=== PATIENT | male | born 1970 | race African-American/Black ===

== ENCOUNTER 2017-09-17 19:17 | Emergency (ER) | payer SELFPAY | END 2017-09-17 20:30 | disposition left against medical advice (07) | LOC: EMS 19:25 | DX: Z53.21 Procedure and treatment not carried out due to patient leaving prior to being seen by health care provider (principal) ==

== ENCOUNTER 2022-04-17 17:24 | Inpatient (IN) | payer MEDICAID ==
[~2022-04-17] VITALS: Ht 180.3 cm; Wt 102.7 kg
[2022-04-17] MEDS ORDERED: NALOXONE HCL 1 MG/ML 2 ML SYRINGE IVP ONE ×2 (17:30→18:30)
[2022-04-17] MEDS ORDERED: SODIUM CHLORIDE 0.9% 1,000 ML IV ONE (17:45)
[2022-04-17 17:56] LABS: BASOPHILS % (AUTO) 0.4 % (0.0-2.0); EOSINOPHILS % (AUTO) 2.3 % (1.0-6.0); HEMATOCRIT 42.9 % (41-53); HEMOGLOBIN 14.3 g/dL (13.5-17.5); LYMPHOCYTES # (AUTO) 2.3 K/uL (1.0-4.8); MEAN CORPUSCULAR HEMOGLOBIN 28.4 pg (26.0-34.0); MEAN CORPUSCULAR HGB CONC 33.3 G/dL (31.0-37.0); MEAN CORPUSCULAR VOLUME 86 fL (80-100); MONOCYTES # (AUTO) 0.6 K/uL (0.1-1.0); NEUTROPHILS # (AUTO) 2.9 K/uL (1.8-7.7); NEUTROPHILS % (AUTO) 48.3 % (40.0-70.0); PLATELET COUNT (AUTO) 204 K/uL (150-450); RED BLOOD CELL COUNT(AUTO) 5.02 MIL/uL (4.50-5.90); RED CELL DISTRIBUTION WIDTH 13.7 % (11.5-14.5)
[2022-04-17 17:57] LABS: COVID AG,FIA SOURCE NASOPHARYNGEAL
[2022-04-17 18:14] LABS: PROTHROMBIN TIME 10.3 SEC (9.4-11.6)
[2022-04-17 18:25] LABS: LACTIC ACID 2.1 mmol/L (0.4-2.0)
[2022-04-17 18:26] LABS: B-TYPE NATRIURETIC PEPTIDE < 5 pg/mL (0-100)
[2022-04-17 18:34] LABS: ALANINE AMINOTRANSFERASE 23 U/L (12-78); ALBUMIN 4.2 g/dL (3.4-5.0); ALKALINE PHOSPHATASE 94 U/L (46-116); ANION GAP 14 mmol/L (8-16); ASPARTATE AMINOTRANSFERASE 18 U/L (15-37); BILIRUBIN,TOTAL 0.3 mg/dL (0.1-1.0); CALCIUM, TOTAL 8.8 mg/dL (8.8-10.5); CARBON DIOXIDE 27 mmol/L (22-29); CHLORIDE 106 mmol/L (98-107); CREATINE KINASE, TOTAL ONLY 318 U/L (39-308); CREATININE 1.07 mg/dL (0.60-1.30); GLOMERULAR FILTR. RATE CALC > 60 mL/min (>60); GLUCOSE,RANDOM 117 mg/dL (70-110); SODIUM SERUM 147 mmol/L (136-145); TOTAL PROTEIN, SERUM 7.7 g/dL (6.4-8.2); UREA NITROGEN, BLOOD 11 mg/dL (7-18)
[2022-04-17 18:35] LABS: POTASSIUM 2.9 mmol/L (3.5-5.1)
[2022-04-17 18:56] LABS: ABG BASE EXCESS -2.6 mmol/L (-2.0-3.0); ABG CARBOXYHEMOGLOBIN 2.4 % (0.0-1.5); ABG HCO3 22.1 mmol/L (22.0-26.0); ABG METHEMOGLOBIN 0.3 % (0.0-1.5); ABG OXYGEN CONTENT 17.7 mL/dL (15.0-23.0); ABG OXYGEN SATURATION 91.3 % (95.0-98.0); ABG OXYHEMOGLOBIN 88.8 % (94.0-100.0); ABG PCO2 43 mmHg (35-45); ABG PH 7.345 (7.35-7.450); ABG TOTAL HEMOGLOBIN 14.2 G/dL (12.0-18.0); PO2, ARTERIAL BG 61.9 mmHg (84.0-92.0); SOURCE, BLOOD GAS ARTERIAL; TEMPERATURE, FAHRENHEIT, BG 98.6 FAHREN (96.0-98.6)
[2022-04-17 18:57] LABS: O2 DEVICE,BLOOD GAS CANNULA (ROOM AIR); SITE, BLOOD GAS LFT RADIAL
[2022-04-17 18:57] LABS: APPEARANCE,URINE CLEAR (CLEAR); BILIRUBIN,URINE NEGATIVE (NEGATIVE); GLUCOSE, URINE (UA) NEGATIVE (NEGATIVE); KETONES,URINE NEGATIVE (NEGATIVE); LEUKOCYTE ESTERASE ,URINE NEGATIVE (NEGATIVE); NITRATE,URINE NEGATIVE (NEGATIVE); OCCULT BLOOD,URINE MODERATE (NEGATIVE); PROTEIN,URINE 30-70 mg/dL (NEGATIVE); SPECIFIC GRAVITIY, URINE 1.019 (1.003-1.030); UROBILINOGEN,URINE <=1.0 mg/dL (<=1.0)
[2022-04-17 19:02] LABS: PHOSPHORUS 3.8 mg/dL (2.5-4.9)
[2022-04-17 19:06] LABS: AMPHET/METH SCREEN,URINE POSITIVE (NEGATIVE); BACTERIA,URINE None Seen /HPF (None Seen); BARBITURATE SCREEN, URINE NEGATIVE (NEGATIVE); BENZODIAZEPINES SCREEN,URINE NEGATIVE (NEGATIVE); CANNABINOID SCREEN,URINE NEGATIVE (NEGATIVE); COCAINE SCREEN,URINE NEGATIVE (NEGATIVE); METHADONE SCREEN, URINE NEGATIVE (NEGATIVE); OPIATE SCREEN,URINE NEGATIVE (NEGATIVE); RBC,URINE 0-2 /HPF (0-2); WBC,URINE None Seen /HPF (0-5)
[2022-04-17] MEDS ORDERED: ONDANSETRON HCL 4 MG/2 ML VIAL IVP PRN (19:15)
[2022-04-17] MEDS ORDERED: POTASSIUM CHLORIDE 20 MEQ ER TABLET PO PRN (19:30)
[2022-04-17] MEDS ORDERED: PIPERACILLIN/TAZO 3.375 GM/D5W 50 ML IV ONE (19:30)
[2022-04-17] MEDS ORDERED: POTASSIUM CHL 10 MEQ/WATER 50 ML IV PRN (19:30)
[2022-04-17] MEDS ORDERED: NALOXONE HCL 0.4 MG/ML VIAL IVP PRN (19:30)
[2022-04-17] MEDS: POTASSIUM CHL 10 MEQ/WATER 50 ML IV SCH ×2 (19:40→22:24)
[2022-04-17 19:49] LABS: PHENCYCLIDINE SCREEN,URINE NEGATIVE (NEGATIVE)
[2022-04-17 23:18] VITALS: BP 125/89
[2022-04-18] MEDS: PIPERACILLIN/TAZO 3.375 GM/D5W 50 ML IV SCH ×4 (02:09→20:05)
[2022-04-18 06:49] VITALS: BP 141/87
[2022-04-18 07:16] VITALS: BP 138/82
[2022-04-18] MEDS ORDERED: [UNRECOGNIZED DRUG - REMARK] AS (08:36)
[2022-04-18 11:28] VITALS: BP 148/89
[2022-04-18 14:51] VITALS: BP 142/78
[2022-04-18] MEDS ORDERED: OMEP20 PO (16:24)
[2022-04-18] MEDS ORDERED: OLAN10TA74 PO ×2 (16:24)
[2022-04-18] MEDS ORDERED: LOSA-382 PO (16:24)
[2022-04-18] MEDS ORDERED: DOLU1TAB2 PO (16:24)
[2022-04-18] MEDS ORDERED: NALOXONE HCL 1 MG/ML 2 ML SYRINGE IVP ONE (16:36)
[2022-04-18] MEDS ORDERED: 0.9% SODIUM CHLORIDE 10 ML SYRINGE IVP ONE (16:36)
[2022-04-18] MEDS ORDERED: AMLO10TA55 PO (16:42)
[2022-04-18] MEDS ORDERED: NICO-803 TD (16:42)
[2022-04-18] MEDS ORDERED: BUPR-49 PO (16:42)
[2022-04-18] MEDS ORDERED: GABA-1181 PO (16:42)
[2022-04-18] MEDS ORDERED: *NON-FORMULARY MED [ENTER DRUG, DOSE, FREQ IN COMMENTS] CLINICAL ONE (17:00)
[2022-04-18] MEDS: OMEPRAZOLE 20 MG CAPSULE PO SCH (17:28)
[2022-04-18] MEDS: LOSARTAN POTASSIUM 50 MG TABLET PO SCH (17:28)
[2022-04-18] MEDS: DOLUTEGRAVIR SODIUM 50 MG TABLET PO SCH (17:44)
[2022-04-18 19:58] VITALS: BP 146/93
[2022-04-18] MEDS: OLANZapine 10 MG TABLET PO SCH (20:05)
[2022-04-18] MEDS: GABAPENTIN 300 MG CAPSULE PO SCH (20:05)
[2022-04-19 00:11] VITALS: BP 155/78
[2022-04-19] MEDS: PIPERACILLIN/TAZO 3.375 GM/D5W 50 ML IV SCH ×2 (02:25→07:58)
[2022-04-19 05:08] VITALS: BP 153/84
[2022-04-19] MEDS: OMEPRAZOLE 20 MG CAPSULE PO SCH (06:10)
[2022-04-19 06:27] LABS: ANION GAP 11 mmol/L (8-16); CALCIUM, TOTAL 8.5 mg/dL (8.8-10.5); CARBON DIOXIDE 29 mmol/L (22-29); CHLORIDE 103 mmol/L (98-107); CREATININE 1.12 mg/dL (0.60-1.30); GLUCOSE,RANDOM 97 mg/dL (70-110); POTASSIUM 3.9 mmol/L (3.5-5.1); SODIUM SERUM 143 mmol/L (136-145); UREA NITROGEN, BLOOD 12 mg/dL (7-18)
[2022-04-19 06:32] LABS: GLOMERULAR FILTR. RATE CALC > 60 mL/min (>60)
[2022-04-19 07:35] VITALS: BP 150/80
[2022-04-19] MEDS: GABAPENTIN 300 MG CAPSULE PO SCH (07:57)
[2022-04-19] MEDS: LOSARTAN POTASSIUM 50 MG TABLET PO SCH (07:57)
[2022-04-19] MEDS: HEPARIN SODIUM,PORCINE 5,000 UNITS/ML VIAL SQ SCH ×2 (07:57)
[2022-04-19] MEDS: OLANZapine 10 MG TABLET PO SCH (07:58)
[2022-04-19] MEDS: DOLUTEGRAVIR SODIUM 50 MG TABLET PO SCH (07:58)
[2022-04-19] MEDS ORDERED: AmLODIPine BESYLATE 10 MG TABLET PO SCH (09:00)
[2022-04-19 11:57] VITALS: BP 102/64
== END 2022-04-19 13:35 | disposition home or self-care (01) | DRG 812 ==
LOC: EMS 17:32 → 5S 23:03
PROVIDERS: ADMIT Internal Medicine; ATTEND Internal Medicine
DX: T43.621A Poisoning by amphetamines, accidental (unintentional), initial encounter (principal); G92.9 Unspecified toxic encephalopathy; E87.1 Hypo-osmolality and hyponatremia; T40.601A Poisoning by unspecified narcotics, accidental (unintentional), initial encounter; E87.6 Hypokalemia; Y92.89 Other specified places as the place of occurrence of the external cause; F11.10 Opioid abuse, uncomplicated; E66.3 Overweight; Z68.31 Body mass index [BMI] 31.0-31.9, adult; Z20.822 Contact with and (suspected) exposure to COVID-19
CPT/HCPCS: 36600; 70450; 71045; 72125; 80048; 80053; 80307; 81001; 82550; 82805; 83605; 83735; 83880; 84100; 84132; 84146; 84484; 85025; 85610; 85730; 93005; 99291; G0480; J1644; J2310; J2405; J2543; J3480; J7030; 36415-L1; 36415-TC; U0003